=== PATIENT | male | born 1950 | race Caucasian/White ===

== ENCOUNTER 2017-03-27 18:12 | Emergency (ER) | payer MEDICARE, OTHER ==
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
[~2017-03-27 18:12] MED LIST: ASPIRIN EC81 MG PO; BRILINTA90 MG PO; BUSPAR5 MG PO; CARBIDOPA-LEVO1 EAC6 PO; DESYREL-DPS50 MG PO; ECOTRIN81 MG PO; FLOMAX DPS0.4 MG PO; KLONOPIN DPS0.5 MG PO; LEXAPRO DPS20 MG PO; LEXAPRO20 MG PO; METOPROLOL SUCC25 MG PO; NEURONTIN DPS300 MG PO; NITROSTAT0.4 MG SL; PERCOCET 5-3251 EACH PO; PROBIOTIC1 EAC1 PO; REQUIP1 MG PO; STALEVO PO; SYMMETREL-DPS100 MG PO; THERAPEUTIC MUL1 TAB PO; ZETIA10 MG PO; [UNRECOGNIZED DRUG - OTHER] PO; [UNRECOGNIZED DRUG - OTHER] PO
== END 2017-03-27 20:00 | disposition home or self-care (01) ==
LOC: ER 18:12
DX: S93.401A Sprain of unspecified ligament of right ankle, initial encounter (principal); I25.2 Old myocardial infarction; G20 Parkinson's disease; Z88.5 Allergy status to narcotic agent; V87.8XXA Person injured in other specified noncollision transport accidents involving motor vehicle (traffic), initial encounter; Y93.55 Activity, bike riding; Y92.410 Unspecified street and highway as the place of occurrence of the external cause